=== PATIENT | female | born 1980 | race Caucasian/White ===

== ENCOUNTER 2017-02-28 09:02 | Emergency (ER) | payer MEDICAID ==
[~2017-02-28] VITALS: Ht 160 cm; Wt 59.0 kg
[2017-02-28 09:27] VITALS: BP 151/111
== END 2017-02-28 11:10 | disposition home or self-care (01) ==
LOC: ER 09:02
DX: F41.1 Generalized anxiety disorder (principal); F32.9 Major depressive disorder, single episode, unspecified; I10 Essential (primary) hypertension

== ENCOUNTER 2022-07-12 20:59 | Emergency (ER) | payer OTHER, MEDICAID ==
[~2022-07-12] VITALS: Ht 157.5 cm; Wt 54.5 kg
[~2022-07-12 20:59] MED LIST: BLOO1KIT60 XX; LISI10TA34 PO; METF-370 PO
[2022-07-13] MEDS ORDERED: METF-370 PO (04:10)
[2022-07-13] MEDS ORDERED: LISI10TA34 PO (04:10)
[2022-07-13] MEDS ORDERED: HYDR50CA PO (04:10)
[2022-07-13] MEDS ORDERED: LORazepam 0.5 MG TAB PO ONE (04:15)
[2022-07-13 05:05] VITALS: BP 148/106
== END 2022-07-13 07:12 | disposition home or self-care (01) ==
LOC: EDBD 20:59 → ER 21:04
DX: F41.0 Panic disorder [episodic paroxysmal anxiety] (principal); F41.9 Anxiety disorder, unspecified; F32.9 Major depressive disorder, single episode, unspecified; E11.9 Type 2 diabetes mellitus without complications; I10 Essential (primary) hypertension; Z76.0 Encounter for issue of repeat prescription; Z98.890 Other specified postprocedural states